=== PATIENT | female | born 1975 | race American Indian/Alaskan Native ===

== ENCOUNTER 2019-08-21 05:35 | Emergency (ER) | payer SELFPAY ==
[2019-08-21] MEDS ORDERED: dexAMETHasone 20 MG/5 ML VIAL IM ONE (06:10)
--- NOTE | 2019-08-21 06:12 | Emergency Department Report ---
ED Back Pain/Injury HPI - General Chief Complaint: Back Pain/Injury Stated Complaint: SEVERE BACK PAIN Time Seen by Provider: 08/21/19 06:08 Source: patient Limitations: No Limitations - History of Present Illness Initial Comments: This is a 43-year-old female with 10-year intermittent history of sciatic buttock pain back pain who presents to the ED complaining of aggravating b ilateral back pain radiating down to her buttock. Patient states that this incident started a week ago when she started painting in her new home. Patient states pain is worsened over the past couple of days with no relief. Patient states she been taking Aleve Motrin and other [id number] pain relief with no resolve. Patient denies any fall, trauma, injuries. She denies inability to have a bowel movement or urinate. She denies chest pain shortness of breath nausea vomiting, ability to walk. MD Complaint: back pain - Related Data Home Medications Medication Instructions Recorded Confirmed Last Taken Omeprazole [PriLOSEC] 20 mg PO QDAY PRN 09/17/14 09/20/14 2 Weeks Ago ~09/06/14 Previous Rx's Medication Instructions Recorded Last Taken Type HYDROcodone/APAP 5-325 [[place] 1 each PO Q4HR PRN #15 tablet 09/20/14 Unknown Rx 5-325 mg TAB] Cyclobenzaprine [Flexeril] 10 mg PO QHS PRN #20 tablet 08/21/19 Unknown Rx Allergies Allergy/AdvReac Type Severity Reaction Status Date / Time No Known Allergies Allergy Unverified 09/17/14 09:47 ED Review of Systems ROS: Stated complaint: SEVERE BACK PAIN Other details as noted in HPI Comment: All other systems reviewed and negative ED Past Medical Hx - Past Medical History Sciatica ED Back Pain Physical Exam - Exam General: Vital signs noted. No distress. Alert and acting appropriately. Back/Abdomen: No Abdominal Tenderness, No Perithoracic Tenderness, No Perilumbar Tenderness, No Sacroiliac Tenderness, No Flank Tenderness, No Straight Leg Raise Pain Neuro: Yes Normal Sensation, Yes Normal DTR's, Yes Normal Gait, No Motor Weakness ED Medical Decision Making - Medical Decision Making This 43-year-old female with a history of sciatica presents with back pain Patient received 10 mg of steroids IM. Vital signs are normal patient is in no acute distress Discussed with patient follow-up with primary care physician. Discussed the patient and take medications as prescribed. Patient has no neurological deficit. Patient is alert and oriented 3 and understands all instructions given. Discussed drowsiness effect of Flexeril makes her drowsy and not to operate machinery while taking flexeril Critical care attestation.: If time is entered above; I have spent that time in minutes in the direct care of this critically ill patient, excluding procedure time. ED Disposition Clinical Impression: Lumbar radiculopathy, acute, Low back pain with sciatica Disposition: TO HOME OR SELFCARE Is pt being admited?: No Does the pt Need Aspirin: No Condition: Stable Instructions: Sciatica (ED), Lumbar Radiculopathy (ED) Additional Instructions: Make sure to follow up with the primary care physician as discussed. Take all your medications as you've been prescribed. If you have any worsening symptoms or develop new symptoms please return to ED immediately. Prescriptions: Cyclobenzaprine [Flexeril] 10 mg PO QHS PRN #20 tablet PRN Reason: Muscle Spasm Referrals: [facility] [Provider Group] - 3-5 Days Forms: Work/School Release Form(ED) Time of Disposition: 06:20
[2019-08-21 06:13] VITALS: BP 138/65
== END 2019-08-21 06:30 | disposition home or self-care (01) ==
LOC: ED 05:35
DX: M54.16 Radiculopathy, lumbar region (principal)
CPT/HCPCS: 96372; 99282; J1100